=== PATIENT | male | born 2005 | race Caucasian/White ===

== ENCOUNTER 2024-04-24 18:13 | Emergency (ER) | payer BC, SELFPAY ==
[2024-04-24 18:31] VITALS: BP 121/73; PULSE 89; RESP 19; TEMP 37; O2SAT 100
--- NOTE | 2024-04-24 18:38 | ED.EAR ---
HPI - Ear Problem General Chief complaint: Ear Stated complaint: EARS CLOGGED Time Seen by Provider: 04/24/24 18:38 Source: patient, RN notes reviewed and old records reviewed Mode of arrival: ambulatory Limitations: no limitations History of Present Illness HPI Narrative: 18-year-old male presents to the [facility] with complaints of feeling of clogged ears and right ear discomfort. Patient reports he tried using earwax remover Symptoms started Wednesday, 2 days ago while he was swimming. Related Data Allergies Allergy/AdvReac Type Severity Reaction Status Date / Time No Known Allergies Allergy Verified 04/24/24 18:45 Review of Systems Review of Systems: All systems reviewed & are unremarkable except as noted in HPI and below Constitutional: Constitutional: Reports no additional constitutional complaints Eyes: Eyes: Reports no additional eye complaints ENT: Reports as per HPI, Reports otalgia and Denies hearing loss PMFSH Comments At the time of my signature, I reviewed and agree with the nursing past medical, surgical, social, and family history. There is no relevant family history pertinent to the patient complaint. Exam Const: General: cooperative, healthy appearing, comfortable, no acute distress, well developed, alert and well nourished Nutritional Appearance: well nourished Orientation/consciousness: patient oriented x3 Limitations: no limitations HENMT: Head: normal to inspection Ears: external ears normal, Abnormal EAC present cerumen impaction bilateral, erythema (mild) on the right and edema on the right and unable to visualize TM bilaterally Face/Nose/Sinus: Normal external nose present, Normal nares present, Normal nasal mucous membranes and turbinates present, normal facial exam and face symmetric Face and sinus: normal facial exam and face symmetric Eyes: General: appearance normal, both eyes and all related structures Alignment and Position: alignment normal Periorbital: periorbital findings normal Pupils: Equal, round and reactive pupils present EOM: EOMs intact bilaterally Neck: Neck: normal visual inspection, full ROM, no lymphadenopathy and no meningeal signs Chest: Chest palpation & inspection: normal inspection of the chest Resp: Effort & Inspection: normal respiratory effort and able to speak in complete sentences Cardio: Rate: regular rate Skin: General skin exam: normal color and no rashes or lesions noted Lesions: no lesions Rashes: no rashes Trauma: no lacerations or abrasions Wounds: no wounds Neuro: General: patient oriented x3, gait normal, tone normal, moves all extremities and no meningeal signs Cranial nerves: Yes Equal, round and reactive pupils present Cognition (Neuro): normal cognition Speech: normal speech Gait exam (Neuro): Normal gait present Extrem: General: normal to inspection, full ROM, capillary refill normal and normal gait Psych: Appearance: grossly normal and well kempt Mental Status: mental status grossly normal Speech and movement: Normal speech and movement present and Clear speech present Affect: normal affect Attitude: cooperative Course Course Level of Care: Express Care Visit Vital Signs Vital signs: Vital Signs Temperature 98.6 F 04/24/24 18:31 Pulse Rate 89 04/24/24 18:31 Respiratory Rate 19 04/24/24 18:31 Blood Pressure 121/73 04/24/24 18:31 Pulse Oximetry 100 04/24/24 18:31 Oxygen Delivery Room Air 04/24/24 18:31 Temperature 98.6 F 04/24/24 18:31 Pulse Rate 89 04/24/24 18:31 Respiratory Rate 19 04/24/24 18:31 Blood Pressure 121/73 04/24/24 18:31 Pulse Oximetry 100 04/24/24 18:31 Oxygen Delivery Room Air 04/24/24 18:31 Reviewed Procedures Ear Wax Removal Both Ears: Ear Wax Removal Date: 04/24/24 Ear Wax Removal Time: 18:48 Cerumenolytic Used: other (Water and peroxide) Results: Re-examined: cerumen removed completely (Right) and some cerumen remains (Left)
== END 2024-04-24 19:02 | disposition home or self-care (01) ==
PROVIDERS: Emergency Provider Nurse Practitioner
DX: H60.331 Swimmer's ear, right ear (principal); H61.23 Impacted cerumen, bilateral
CPT/HCPCS: 69210; 99213; G0463

== ENCOUNTER 2024-12-02 07:51 | Outpatient (CLI) | payer BC, SELFPAY ==
--- OUTSIDE RECORDS SUMMARY | 2024-12-02 07:54 | XMS_ITS | Referral Summary ---
Author Organization [facility] Address [address] [place] [address] Care Team Providers Care Rooms Director Name Role Phone Zena Luis MD Primary Care Provider Source Comments [facility],non-owned Affiliates and Associated Physician Practices is amultiple site organization consisting of ambulatory clinics and hospital sitesin [place], [place], [place] and [place]. This disclosure is being madepursuant to the Care Everywhere program and may not contain all information available regarding this patient. Last updated 18.[facility] Allergies No known active allergies Medications * Be aware that medications may not be up to date on this document. Alwaysverify current medications with the patient. Medication Sig Dispensed Refills Start Date End Date Status ibuprofen (MOTRIN) 200 MG tablet Take 200 mg by mouth every 6 hours as needed for Pain Active Active Problems Problem Noted Date Diagnosed Date Closed torus fracture of distal end of left radi us 02/18/2016 Closed torus fracture of distal end of right rad ius 02/18/2016 Closed fracture of radius Social History Tobacco Use Types Packs/Day Years Used Date Smoking Tobacco: Never Assessed Sex and Gender Information Value Date Recorded Sex Assigned at Not on file Gender Identity Not on file Sexual Orientation Not on file Last Filed Vital Signs Vital Sign Reading Time Taken Comments Blood Pressure - - Pulse - - Temperature - - Respiratory Rate - - Oxygen Saturation - - Inhaled Oxygen Concentration - - Weight 67.2 kg (148 lb 2.4 oz) 02/18/2016 8:13 A M CDT Height 153.7 cm (5' 0.5 ) 02/18/2016 8:13 AM CDT Body Mass Index 28.46 02/18/2016 8:13 AM CDT Body Mass Index Percentile 98.45% 02/18/2016 8:1 3 AM CDT Growth Chart: CDC (Boys, 2-2 0 Years) Plan of Treatment Not on file Care Teams Rooms Director Relationship Specialty Start Date End Date Zena Luis MD [address] [place] [id number] PCP - General Pediatrics 03/19/15
--- OUTSIDE RECORDS SUMMARY | 2024-12-02 07:54 | XMS_ITS | Patient Health Summary ---
Author Organization [facility] Address [address] [place] [address] Care Team Providers Care Inhalation Therapy Aide Name Role Phone Zena Luis MD Primary Care Provider Note from [facility],non-owned Affiliates and Associated Physician Practices is amultiple site organization consisting of ambulatory clinics and hospital sitesin [place], [place], [place] and [place]. This disclosure is being madepursuant to the Care Everywhere program and may not contain all information available regarding this patient. Last updated 18.[facility] Allergies No known active allergies Medications * Be aware that medications may not be up to date on this document. Alwaysverify current medications with the patient. * ibuprofen (MOTRIN) 200 MG tablet Take 200 mg by mouth every 6 hours as needed for Pain Active Problems Problem Noted Date Diagnosed Date [...] Growth Chart: CDC (Boys, 2-2 0 Years) Procedures * XR HAND LEFT 3VW OR MORE(Performed 04/30/2015) Performed for Closed fracture of unspecified phalanx or phalanges of hand * IMAGING/RADIOLOGY/XRAY RESULTS ORDER(Performed 03/28/2015) * XR HAND RIGHT 3VW OR MORE(Performed 03/26/2015) Performed for Hand anomaly * XR HAND LEFT 3VW OR MORE(Performed 03/26/2015) Performed for Closed fracture of unspecified phalanx or phalanges of hand Results * XR HAND 3+ VW LEFT (04/30/2015 4:02 PM CDT) Only the most recent of2 resultswithin the time period is included. Anatomical Region Laterality Modality Wrist / Hand Radiographic Shilpa ging 04/30/2015 4:04 PM CDT Impressions 04/30/2015 4:19 PM CDT 1. Healing mildly displaced pisiform fracture. 2. Osteopenia. Dictated by Nina Davis MD (vice president of advertising). Dina Bedolla, have personally reviewed the images and I agree with this report. Narrative 04/30/2015 4:19 PM CDT EXAMINATION: Left hand, 3 views HISTORY: Fracture of the pisiform. COMPARISON: Radiographs of the left hand dated March 26, 2015. FINDINGS: Frontal, oblique, and lateral views of the left hand were obtained. The mildly displaced fracture of the pisiform is unchanged in alignment with sclerosis along the fracture margins consistent with healing. This is best seen on the frontal view and is not well-seen on the lateral view. No dislocation is identified. Osteopenia is seen in the hand. Procedure Note Dina Simon MD - 04/30/2015 EXAMINATION: Left hand, 3 views HISTORY: Fracture of the pisiform. COMPARISON: Radiographs of the left hand dated March 26, 2015. FINDINGS: Frontal, oblique, and lateral views of the left hand were obtained. The mildly displaced fracture of the pisiform is unchanged in alignment with sclerosis along the fracture margins consistent with healing. This is best seen on the frontal view and is not well-seen on the lateral view. No dislocation is identified. Osteopenia is seen in the hand. IMPRESSION 1. Healing mildly displaced pisiform fracture. 2. Osteopenia. Dictated by Nina Davis MD (vice president of advertising). Dina Bedolla, have personally reviewed the images and I agree with this report. Eliot Dunn MD DIAGNOSTIC IMAGING O RDERABLES * IMAGING/RADIOLOGY/XRAY RESULTS ORDER (03/28/2015 5:16 AM CDT) Anatomical Region Laterality Modality Other Narrative 03/28/2015 5:16 AM CDT Ordered by an unspecified provider. Scanned Document IMAGING * XR HAND 3+ VW RIGHT (03/26/2015 2:51 PM CDT) Anatomical Region Laterality Modality Wrist / Hand Radiographic Shilpa ging 03/26/2015 3:04 PM CDT Impressions 03/26/2015 3:05 PM CDT Mild diffuse osteopenia. Narrative 03/26/2015 3:05 PM CDT 3 views of the right hand performed 03/26/2015. History: Unspecified congenital anomaly. AP, lateral, and oblique views of the right hand were obtained. No prior radiographs are available for comparison. There is mild disuse osteopenia about the hand. No definite acute fracture or subluxation is seen. Procedure Note Dina Simon MD - 03/26/2015 3 views of the right hand performed 03/26/2015. History: Unspecified congenital anomaly. AP, lateral, and oblique views of the right hand were obtained. No prior radiographs are available for comparison. There is mild disuse osteopenia about the hand. No definite acute fracture or subluxation is seen. IMPRESSION Mild diffuse osteopenia. Eliot Dunn MD DIAGNOSTIC IMAGING O RDERABLES Care Teams Inhalation Therapy Aide Relationship Specialty Start Date End Date Zena Luis MD [address] [place] [address] PCP - General Pediatrics 03/19/15
--- OUTSIDE RECORDS SUMMARY | 2024-12-02 07:54 | XMS_ITS | Clinical Summary ---
Author Organization [facility] Address [address] [place] [address]. 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 Gender Identity Not on file Sexual Orientation Not on file Plan of Treatment Health Maintenance Due Date Last Done Comments Annual Physical 2007 HPV Vaccines (1 - Male 3-dos e series) 2019 Meningococcal B Vaccine (1 o f 2 - Standard) 2020 Hepatitis C 2022 DTaP, Tdap and Td Vaccines ( 1 - Tdap) 2023 Hepatitis B Vaccines (1 of 3 - 19+ 3-dose series) 2023 COVID-19 Vaccine ( - 2023-2 5 season) 2024 Influenza Adult (#1) 2024 Meningococcal Vaccine Aged Out No nandini taj eligible based on patient's age to complete this topic Pneumococcal Vaccine: Pediat rics (0 to 5 Years) and At-Risk Patients (6 to 64 Years) Aged Out No longer eligible b ased on patient's age to complete this topic RSV Immunizations Under 20 Months Aged Out No longer eligible based on patient's age to complete this topic
--- OUTSIDE RECORDS SUMMARY | 2024-12-02 07:54 | XMS_ITS | Clinical Summary ---
Author Organization [facility] Address [address] [place] [address] Care Team Providers Care Silviculture Professor Name Role Phone Zena Luis MD Primary Care Provider Source Comments [facility],non-owned Affiliates and Associated Physician Practices is amultiple site organization consisting of ambulatory clinics and hospital sitesin [place], [place], [place] and [place]. This disclosure is being madepursuant to the Care Everywhere program and may not contain all information available regarding this patient. Last updated 18.[facility] Allergies No known active allergies Medications * [...] (Boys, 2-2 0 Years) Plan of Treatment Health Maintenance Due Date Last Done Comments HIV SCREENING 2019 HPV VACCINE (1 - Male 3-dose series) 2019 MENINGOCOCCAL (Group B) VACC INE (1 of 2 - Standard) 2020 HEPATITIS C SCREENING 12/13/2022 DTAP/TDAP/TD VACCINES (1 - Tdap) 2023 HEPATITIS B VACCINE (1 of 3 - 19+ 3-dose series) 2023 COVID-19 VACCINE (1 - 2023-2 5 season) 2024 INFLUENZA VACCINE (#1) 2024 DEPRESSION SCREENING 11/01/2024 ZOSTER VACCINE (1 of 2) 2054 HIB VACCINE Aged Out No longer eligi ble based on patient's age to complete this topic MENINGOCOCCAL VACCINE Aged Out No nandini taj eligible based on patient's age to complete this topic PNEUMOCOCCAL VACCINE Aged Out No long er eligible based on patient's age to complete this topic Care Teams Silviculture Professor Relationship Specialty Start Date End Date Zena Luis MD [address] [place] [id number] PCP - General Pediatrics 03/19/15
[2024-12-02 09:01] LABS: Basophils Absolute Auto 0.1 K/mm3 (0.0-0.1); Basophils Percent Auto 0.5 % (0.2-1.2); Eosinophils Absolute Auto 0.1 K/mm3 (0-0.3); Hematocrit 47.6 % (42.0-52.0); Hemoglobin 15.9 g/dL (14.0-18.0); Immature Granulocyte Absolute 0.05 K/mm3 (0.00-0.031); Immature Granulocyte Percent A 0.5 % (0-0.5); Lymphocytes Absolute Auto 2.21 K/mm3 (0.9-3.2); Lymphocytes Percent Auto 24.2 % (18.3-44.2); Mean Corpuscular HGB Conc 33.4 g/dl (32-36); Mean Corpuscular Hemoglobin 29.1 pg (26-34); Mean Platelet Volume 10.3 fl (7.4-10.4); Monocytes Absolute Auto 0.9 K/mm3 (0.1-0.6); Monocytes Percent Auto 9.4 % (2.6-8.5); Neutrophils Absolute Auto 5.9 K/mm3 (1.3-6.7); Neutrophils Percent Auto 64.4 % (45.5-73.1); Platelet Count Result 246 k/mm3 (150-375); Red Blood Count 5.47 M/mm3 (4.6-6.20); Red Cell Distribution Width 11.9 % (11.5-14.5); White Blood Count 9.1 K/mm3 (4.5-10.0)
[2024-12-02 09:13] LABS: Alanine Aminotransferase 27 U/L (6-50); Albumin Level 4.3 g/dL (3.7-5.6); Alkaline Phosphatase 64 U/L (58-237); Anion Gap 9 mmol/L (4-12); Aspartate Amino Transferase 20 U/L (17-59); Bilirubin,Total 0.9 mg/dL (0.2-1.3); Blood Urea Nitrogen 16 mg/dL (8-21); Calcium 9.1 mg/dL (8.9-10.7); Carbon Dioxide 24 mmol/L (22-30); Chloride 104 mmol/L (98-107); Cholesterol 126 mg/dL (0-200); Estimated Glomerular Filt Rate > 60; Glucose 91 mg/dL (65-110); HDL Direct 46 mg/dL; Potassium 4.1 mmol/L (3.4-5.0); Sodium 137 mmol/L (134-143); Triglycerides 108 mg/dL (<150)
[2024-12-02 09:24] LABS: LDL Cholesterol Direct 62 mg/dL
== END 2024-12-02 07:52 | disposition home or self-care (01) ==
LOC: ANHLAB 07:52
PROVIDERS: PCP Internal Medicine; Visit Provider Nurse Practitioner
DX: Z13.228 Encounter for screening for other metabolic disorders (principal); Z13.220 Encounter for screening for lipoid disorders
CPT/HCPCS: 36415; 80053; 80061; 85025

== ENCOUNTER 2024-12-11 16:33 | Emergency (ER) | payer BC, SELFPAY ==
[2024-12-11 17:29] VITALS: BP 134/84; PULSE 73; RESP 16; TEMP 36.7; O2SAT 100
--- NOTE | 2024-12-11 18:25 | ED_ITS ---
HPI - URI/Sore Throat General Chief Complaint: Upper Respiratory Infection Stated Complaint: Ear Pain/Diarrhea Time Seen by Provider: 12/11/24 18:20 Source: patient, RN notes reviewed and old records reviewed Mode of arrival: ambulatory Limitations: no limitations History of Present Illness HPI Narrative: 18 year old male presents to express care with complaints of nausea with fatigue on Wednesday and on Wednesday he started to have diarrhea which has continued today. Patient reports that he has had some dizziness, headache, left ear pain and nausea for 3 days duration. Patient reports no shortness of breath, no fevers, cough or any runny nose or any body aches. Patient reports that he has taken some Tylenol and Ibuprofen for his discomfort. MD elicited complaint: other (ear pain, diarrhea) Onset (ago): day(s) ( days) Pain scale (0-10): 3 Able to tolerate fluids by mouth: Yes Treatments prior to arrival: acetaminophen and ibuprofen Related Data Allergies Allergy/AdvReac Type Severity Reaction Status Date / Time No Known Allergies Allergy Verified 12/11/24 17:39 Review of Systems Review of Systems: CONSTITUTIONAL: Reports malaise, no chills, sweats, or fever. EYES: Denies visual changes, redness, or discharge. ENT: Reports no rhinorrhea, congestion, sinus pain, left otalgia and no sore throat. CARDIOVASCULAR: Denies chest pain, palpitations, or edema. RESPIRATORY: Reports no cough.? Denies dyspnea. GASTROINTESTINAL: Denies abdominal pain, positive for nausea, no vomiting,positive for diarrhea SKIN: Denies rash or itching. MUSCULOSKELETAL: Denies myalgia. NEUROLOGIC:Reports headache. All systems reviewed & are unremarkable except as noted in HPI and below PMFSH Past Medical History Medical History (Updated 12/12/24 @ 21:33 by Freya Khan NP) Bilateral radial fractures Strep throat Family History Family History Father Hypertension Social History Social History Smoking status: Current some day smoker (vaping) Tobacco type: e-cigarettes/vaping Alcohol intake: current Substance use: current Substance use type: marijuana Do You Feel Safe in your Home?: Yes Living arrangements: with family Occupation/Education: occupation Additional occupation/education comments: [employer] Gender identity (if verbalized by the patient): Male Agree to blood products: Yes Comments At time of signature, agree with nursing past medical, surgical, social and family history. There is no relevant family history pertinent to the presenting complaint Exam Narrative: GENERAL: Well-appearing, well-nourished, and in no acute distress. HEAD: Normocephalic EYES: PERRLA, conjunctivae clear ENT: Nares clear, turbinates edematous and erythematous, clear discharge. Mucous membranes moist Left TM red, Right. TM pearly fuller with dull light reflex; no tragal tenderness. Oropharynx erythematous without lesions. Tonsils not enlarged and without exudate, no drooling, no hoarseness, no trismus, uvula midline. NECK: Supple. No lymphadenopathy CHEST: Clear to auscultation, breath sounds equal. No wheezing, rhonchi, rales, or stridor. No respiratory distress, speaks in full sentences.SAO2 100% on room air Gastrointestinal : abdomen soft, nondistended, denies any abdominal pain, no McBurney point tenderness, reports nausea with no vomiting and diarrhea no blood noted or black stools HEART: Regular rate and rhythm. No murmur heard. SKIN: Warm, dry, no rash. NEURO: Alert and oriented x3. PSYCH: Normal mood and affect Course Course Emergency Course: Patient is aware of diagnosis, understands and agrees to treatment plan.? Anticipatory guidance given.? Patient agrees to follow-up as directed and is aware of reasons to seek care at the emergency department. Portions of this record may have been created with voice recognition software Level of Care: Express Care Visit Vital Signs Vital signs: Vital Signs Temperature 36.7 C 12/11/24 17: Pulse Rate 73 12/11/24 17: Respiratory Rate 16 12/11/24 17: Blood Pressure 134/84 12/11/24 17: Pulse Oximetry 100 12/11/24 17: Oxygen Delivery Room Air 12/11/24 17: Temperature 36.7 C 12/11/24 17: Pulse Rate 73 12/11/24 17:29 Respiratory Rate 16 12/11/24 17: Blood Pressure 134/84 12/11/24 17: Pulse Oximetry 100 02/10/25 17:29 Oxygen Delivery Room Air 12/11/24 17:29 Reviewed MDM - URI/Sore Throat MDM Narrative Medical decision making narrative: Differential diagnosis considered: Medrano virus, strep pharyngitis, allergic rhinitis, upper respiratory tract infection, sinusitis, rhinosinusitis, nasopharyngitis. viral pharyngitis, otitis media, otitis externa, pneumonia, bronchitis, viral cough syndrome, viral syndrome, and influenza.? Exam findings show no acute concerns or changes; patient is non-toxic appearing and is in no distress.? Patient is appropriate for outpatient treatment and follow-up. Differential Diagnosis Differential diagnosis: Likely upper respiratory infection, otitis media, viral infection and other (nausea and diarrhea, influenza) Medical Records Attestation: I reviewed the patient's medical records. Lab Data Attestation: I reviewed the patient's lab results. Lab results narrative: Influenza A negative Influenza B negative, COVID antigen negative Labs: Lab Results 12/11/24 Range/Units 18:35 POC Influenza A Ag Negative (Negative) POC Influenza B Ag Negative (Negative) POC SARS CoV-2 Ag Negative (Negative) reviewed Critical Care Time Critical Care Time Critical Care Time: No Discharge Plan Discharge Clinical Impression: Diarrhea Qualifiers: Diarrhea type: unspecified type Qualified Code(s): R19.7 - Diarrhea, unspecified Left otitis media Qualifiers: Otitis media type: serous Chronicity: acute Recurrence: non-recurrent Qualified Code(s): H65.02 - Acute serous otitis media, left ear Patient Disposition: Home, Self-Care Condition: Stable Instructions: Antibiotic Form, Ear Infection (ED), Acute Diarrhea (ED) Additional Instructions: Clear liquids for the next 8-10 hours, then advance to a bland diet as tolerated A bland diet can consist of--BRAT diet which is bananas, rice, applesauce, and toast Avoid fried, greasy, fatty, fried foods Avoid caffeine, nicotine, and alcohol Return to your regular diet in the next 3-4 days Medication as directed for nausea and vomiting Sometimes ibuprofen/Aleve can cause increased stomach upset [id number] Imodium if develop diarrhea Follow-up with her PCP if continued problems or uncontrolled pain antibiotic as prescribed for ear infection recommend Tylenol for any fever pain If your symptoms persist, change or worsen significantly before you can contact your personal physician then please, without delay, go to the emergency department for further evaluation. Follow-up with PCP in 7-10 days or sooner if needed Follow up with PCP soon in regards to your blood pressure which is elevated above threshold for referral. Blood pressure above 120/80 may indicate pre- hypertension. [id number] Patient Language: Chilean Prescriptions: New amoxicillin 875 mg tablet 875 mg PO Q12H Qty: 20 0RF Rx Instructions: take all doses of medication ondansetron 4 mg tablet,disintegrating 4 mg PO Q6H PRN (Reason: nausea and vomiting) Qty: 14 0RF Follow-up/Referrals: PHYSICIAN,LETTER OF CREDIT CLERK [Primary Care Provider] - Time of Disposition: 18:37 Quality Nasim Coma Scale Eyes: Open Verbal: Oriented and Alert Motor: Follows Commands [place] Coma Total Score: 15
[2024-12-11 18:37] LABS: EDCOVIDSCREEN Negative (Negative); EDINFLUASCREEN Negative (Negative); EDINFLUBSCREEN Negative (Negative)
== END 2024-12-11 18:43 | disposition home or self-care (01) ==
PROVIDERS: Emergency Provider Registered Nurse
DX: R19.7 Diarrhea, unspecified (principal); H65.02 Acute serous otitis media, left ear; F17.290 Nicotine dependence, other tobacco product, uncomplicated; Z20.822 Contact with and (suspected) exposure to COVID-19
CPT/HCPCS: 87426; 87804; 99213; G0463

== ENCOUNTER 2025-01-08 16:37 | Emergency (ER) | payer BC, SELFPAY ==
--- NOTE | ~2025-01-08 | XR_ITS ---
EXAM: XR finger 2nd LT min 2V DATE: 01/08/2025 17:09 HISTORY: smash with hammer today at 1430. distal lt 2nd digit . COMPARISON: None available. FINDINGS: Normal mineralization. Comminuted and minimally distracted left second distal tuft fractur e with extension to the DIP joint. No lytic or blastic lesion. Joint spaces are maintained. No erosio n or periosteal change. Soft tissue irregularity over the nail/nailbed. IMPRESSION: Comminuted, minimally distracted intra-articular left second distal tuft fracture. Questi on nail/nailbed disruption. Reviewed, dictated and finalized at location K. IMPRESSION: Comminuted, minimally distracted intra-articular left second distal tuft fracture. Question nail/nailbed disruption.
[2025-01-08 16:57] VITALS: BP 142/78; PULSE 108; RESP 18; TEMP 36.7; O2SAT 100
--- NOTE | 2025-01-08 17:10 | ED_ITS ---
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 States he struck the end of the finger with a hammer. Endorses bleeding near the nail. Unsure of last tetanus. Pt is left hand dominant. Related Data Allergies Allergy/AdvReac Type Severity Reaction Status Date / Time No Known Allergies Allergy Verified 01/08/25 17:00 Review of Systems Review of Systems: CONSTITUTIONAL: Denies body aches, fever, chills CARDIOVASCULAR: Denies chest pain, palpitations, or edema. RESPIRATORY: Denies cough or dyspnea. SKIN: Denies rash, itching, or wounds. MUSCULOSKELETAL: reports laceration left index finger NEUROLOGIC: Denies headache, numbness, tingling, or weakness. PSYCH: Denies depression or anxiety. All systems reviewed & are unremarkable except as noted in HPI and below PMFSH Past Medical History Medical History Bilateral radial fractures Strep throat Family History Family History Father Hypertension Social History Social History Smoking status: Current some day smoker (vaping) Tobacco type: e-cigarettes/vaping Alcohol intake: current Substance use: current Substance use type: marijuana Do You Feel Safe in your Home?: Yes Living arrangements: with family Occupation/Education: occupation Additional occupation/education comments: [employer] Gender identity (if verbalized by the patient): Male Agree to blood products: Yes Comments At time of signature, I have reviewed and agree with nursing past medical, surgical, social and family history unless otherwise noted. Please see nursing chart for further information. There is no relevant family history pertinent to the presenting complaint Exam Narrative: GENERAL: Well-appearing CHEST: Speaks in full sentences. No respiratory distress. HEART: Regular rate and rhythm. Normal and equal peripheral pulses. EXTREMITIES: Left hand 2nd digit distal phalanx with nail avulsion at base, active bleeding; tenderness with light palpation. Laceration extends approx 2cm total. Mild subungual hematoma noted approximately 20%. Pulse palpable and equal bilaterally, Pt has normal strength and sensation, Capillary refill less than 3 seconds. SKIN: Warm, dry NEURO: Alert and oriented x3. PSYCH: Normal mood and affect Course Course Emergency Course: Patient is aware of diagnosis, understands and agrees to treatment plan. Anticipatory guidance given. Patient agrees to follow-up as directed and is aware of reasons to seek care at the emergency department. Portions of this record may have been created with voice recognition software Level of Care: Express Care Visit Vital Signs Vital signs: Vital Signs Temperature 98.1 F 01/08/25 16:57 Pulse Rate 108 H 01/08/25 16:57 Respiratory Rate 18 01/08/25 16:57 Blood Pressure 142/78 H 01/08/25 16:57 Pulse Oximetry 100 01/08/25 16:57 Oxygen Delivery Room Air 01/08/25 16:57 Temperature 98.1 F 01/08/25 16:57 Pulse Rate 108 H 01/08/25 16:57 Respiratory Rate 18 01/08/25 16:57 Blood Pressure 142/78 H 01/08/25 16:57 Pulse Oximetry 100 01/08/25 16:57 Oxygen Delivery Room Air 01/08/25 16:57 Reviewed Procedures Other Procedure Procedure 1: Other Procedure: Attempted nail avulsion reduction of the left 2nd digit Lidocaine 1% for digital nerve block, 8 mL Area soaked with Betadine, cleansed with skin integrity and Betadine. Using forceps the radial side of the proximal end of the nail was reduced however the ulnar side could not be reduced completely, small amount of bleeding continued. MDM - Extremity Injury (Upper) MDM Narrative Medical decision making narrative: Discussed physical exam findings and xray. Pt with 2nd digit nail avulsion and comminuted fracture of distal phalanx Wound cleansed, soaked in Betadine. Tetanus updated today Contacted Dr Alaniz regarding follow up, recommended avulsed nail needs to be reduced, abx, and follow up with hand surgeon, however he is unable to add urgent cases at this time and recommends outside referral. Advised ER transfer as the avulsed nail could not be fully reduced. Patient declines ER at this time. He is aware of the risks associated with infection and losing the nail. He plans to contact hand surgeon in the morning. He has been provided with a list of 5 hand surgeons in the nearby area. Provided with cephalexin and hydrocodone, tube gauze dressing applied to the finger. Also provided with a plastic distal phalanx finger splint should the dressing become saturated. Differential Diagnosis Differential diagnosis: Likely other (fracture, laceration, abrasion, avulsion) Imaging Data Radiologist's impression: Patient: Adán Sepulveda : 2005 MR#: [id number] Age: 19 Acct:[id number] Loc: [id number] ADM Date: 01/08/25Attending Dr: Ordering Physician: Alida Bauman APRN Date of Service: 01/08/25 Procedure(s): XR finger 2nd LT min 2V Accession Number(s): [id number] cc: Alida Bauman APRN; Danna Bledsoe APRN~ EXAM: XR finger 2nd LT min 2V DATE: 01/08/2025 17:09 HISTORY: smash with hammer today at 1430. distal lt 2nd digit . COMPARISON: None available. FINDINGS: Normal mineralization. Comminuted and minimally distracted left second distal tuft fracture with extension to the DIP joint. No lytic or blastic lesion. Joint spaces are maintained. No erosion or periosteal change. Soft tissue irregularity over the nail/nailbed. IMPRESSION: Comminuted, minimally distracted intra-articular left second distal tuft fracture. Question nail/nailbed disruption. Discharge Plan Discharge Clinical Impression: Open fracture of finger Qualifiers: Encounter type: initial encounter Finger: index finger Phalanx: distal Fracture alignment: displaced Laterality: left Qualified Code(s): S62.631B - Displaced fracture of distal phalanx of left index finger, initial encounter for open fracture Patient Disposition: Home, Self-Care Condition: Stable Instructions: Finger Fracture (ED) Additional Instructions: You were advised to transfer to the ER and you decline at this time. You were made aware of the risk of refusal including worsening of your condition, infection, disability, and . Report to the ER immediately for any worsening symptoms. You must contact a hand surgeon for further evaluation and management of your finger injury. You have an open wound over a broken bone. Take the antibiotic as directed No lifting, pushing, pulling etc. Keep the hand elevated. Keep the area clean and dry Keep the tube roll gauze in place Tylenol as needed for pain You can take hydrocodone as needed for severe pain, it can cause drowsiness do not drive until you helping sheep feel Watch for worsening symptoms including pain, redness, swelling, streaking, pus/drainage, fever. Go to the ER with any of these symptoms or concerns. Follow up with primary care provider, call tomorrow to schedule an appointment tetanus updated today Patient Language: Spanish Prescriptions: New cephalexin 500 mg capsule 500 mg PO Q6H 10 Days Qty: 40 0RF hydrocodone-acetaminophen 5-325 mg tablet 1 tablet PO Q8H PRN (Reason: pain) Qty: 10 0RF Follow-up/Referrals: Jerrod Alaniz MD [Physician] - Danna Bledsoe NP [Primary Care Provider] - Stand Alone Forms: Work/School Release IP
[2025-01-08] MEDS: TETANUS,DIPHTHERIA,AC PERTUSSIS ADULT (0.5 ML) BOOSTRIX IM (17:17)
[2025-01-08] MEDS: ACETAMINOPHEN 500 MG TABLET 1000 MG PO (18:44)
== END 2025-01-08 20:13 | disposition home or self-care (01) ==
PROVIDERS: Emergency Provider Nurse Practitioner Family; PCP Nurse Practitioner
DX: S62.631B Displaced fracture of distal phalanx of left index finger, initial encounter for open fracture (principal); W27.8XXA Contact with other nonpowered hand tool, initial encounter; Z23 Encounter for immunization; F17.290 Nicotine dependence, other tobacco product, uncomplicated
CPT/HCPCS: 29130; 73140; 90471; 90715; 99213; 99214; A9270; G0463; J2003